=== PATIENT | male | born 1955 | race Caucasian/White ===

== ENCOUNTER 2019-12-11 10:02 | Outpatient (CLI) | payer OTHER, SELFPAY ==
[2019-12-11 10:44] LABS: Basophils Percent Auto 0.4 % (0.2-1.2); Eosinophils Absolute Auto 0.1 K/mm3 (0-0.3); Eosinophils Percent Auto 1.5 % (0-4.4); Hematocrit 47.9 % (42.0-52.0); Hemoglobin 16.4 g/dL (14.0-18.0); Immature Granulocyte Absolute 0.08 K/mm3 (0.00-0.031); Immature Granulocyte Percent A 0.9 % (0-0.5); Lymphocytes Absolute Auto 1.65 K/mm3 (0.9-3.2); Lymphocytes Percent Auto 18.1 % (18.3-44.2); Mean Corpuscular HGB Conc 34.2 g/dl (32-36); Mean Corpuscular Hemoglobin 32.4 pg (26-34); Mean Corpuscular Volume 94.7 fl (80-100); Mean Platelet Volume 8.7 fl (7.4-10.4); Monocytes Absolute Auto 0.7 K/mm3 (0.1-0.6); Monocytes Percent Auto 7.2 % (2.6-8.5); Neutrophils Absolute Auto 6.6 K/mm3 (1.3-6.7); Neutrophils Percent Auto 71.9 % (45.5-73.1); Platelet Count Result 215 k/mm3 (150-375); Red Blood Count 5.06 M/mm3 (4.6-6.20); Red Cell Distribution Width 12.7 % (11.5-14.5); White Blood Count 9.1 K/mm3 (4.5-10.0)
[2019-12-11 10:57] LABS: Alanine Aminotransferase 24 U/L (4-50); Albumin Level 4.6 g/dL (3.5-5.1); Alkaline Phosphatase 60 U/L (38-126); Aspartate Amino Transferase 31 U/L (17-59); Bilirubin,Total 1.2 mg/dL (0.2-1.3); Blood Urea Nitrogen 16 mg/dL (9-20); Calcium 10.1 mg/dL (8.4-10.2); Carbon Dioxide 28 mmol/L (22-30); Chloride 97 mmol/L (98-107); Estimated Glomerular Filt Rate > 60; Glucose 97 mg/dL (75-110); Sodium 134 mmol/L (137-145); Uric Acid 7.4 mg/dL (3.5-8.5)
[2019-12-11 11:01] LABS: Rheumatoid Factor < 8.6 IU/ML (<12)
[2019-12-11 11:28] LABS: Thyroid Stimulating Hormone 0.505 uIU/mL (0.465-4.680)
[2019-12-11 13:20] LABS: Erythrocyte Sedimentation Rate 11 mm/hr (0-20)
[2019-12-16 19:58] LABS: ANA Cascade Screen Negative (Negative)
== END 2019-12-11 10:03 | disposition home or self-care (01) ==
PROVIDERS: PCP Family Medicine; Visit Provider Family Medicine
DX: I10 Essential (primary) hypertension (principal); L40.9 Psoriasis, unspecified; M06.30 Rheumatoid nodule, unspecified site
CPT/HCPCS: 36415; 80053; 84443; 84550; 85025; 85652; 86038; 86430

== ENCOUNTER 2020-09-20 08:42 | Outpatient (CLI) | payer MEDICARE, OTHER, SELFPAY ==
[2020-09-20 09:19] LABS: Alanine Aminotransferase 18 U/L (4-50); Albumin Level 4.5 g/dL (3.5-5.1); Alkaline Phosphatase 58 U/L (38-126); Anion Gap 8 mmol/L (8-16); Aspartate Amino Transferase 36 U/L (17-59); Bilirubin,Total 2.1 mg/dL (0.2-1.3); Blood Urea Nitrogen 19 mg/dL (9-20); Calcium 9.3 mg/dL (8.4-10.2); Carbon Dioxide 23 mmol/L (22-30); Chloride 104 mmol/L (98-107); Cholesterol 215 mg/dL (0-200); Estimated Glomerular Filt Rate > 60; Glucose 98 mg/dL (75-110); HDL Direct 47 mg/dL; Potassium 4.3 mmol/L (3.4-5.0); Sodium 135 mmol/L (137-145); Triglycerides 282 mg/dL (<150)
[2020-09-20 09:28] LABS: LDL Cholesterol Direct 117 mg/dL
[2020-09-22 21:11] LABS: PSA, Total 0.7 ng/mL (<=4.0)
== END 2020-09-20 08:43 | disposition home or self-care (01) ==
PROVIDERS: PCP Family Medicine; Visit Provider Family Medicine
DX: E78.2 Mixed hyperlipidemia (principal); N40.1 Benign prostatic hyperplasia with lower urinary tract symptoms; I10 Essential (primary) hypertension
CPT/HCPCS: 36415; 80053; 80061; 84153; 84154

== ENCOUNTER → 2020-10-06 07:45 | Outpatient (CLI) | payer MEDICARE, OTHER, SELFPAY ==
--- NOTE | ~2020-10-06 | US_ITS ---
EXAMINATION: US right upper quadrant EXAM DATE: 10/06/2020 08:10 INDICATION: R17 - Unspecified jaundice TECHNIQUE: Multiple grayscale and Doppler images of the abdomen right upper quadrant were obtained (b y a technologist who performed the scan) and subsequently reviewed. There is no prior study for jack akbar. FINDINGS: The pancreatic head and body are normal in appearance. The pancreatic tail is not visualized. The l iver has normal echogenicity and contour. There are no focal liver lesions identified. There is no evidence of intrahepatic biliary duct dilation. Portal venous flow was seen in the hepatopedal, nor mal direction and has normal Doppler waveform. No right-sided hydronephrosis. Common bile duct measures 3 mm, which is normal. The gallbladder wall is normal in thickness, with ex pected amount of distention. No sonographic evidence of pericholecystic fluid. There is no cholelit hiases. Technologist performing exam reports patient did not demonstrate sonographic Nguyen's sign. Please note that this sign is less reliable in patients who have received pain medication. IMPRESSION: 1. Unremarkable abdominal ultrasound exam. Reviewed, dictated and finalized at location B. 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
== END ==
PROVIDERS: PCP Family Medicine; Visit Provider Physician Assistant
DX: R17 Unspecified jaundice (principal)
CPT/HCPCS: 76705

== ENCOUNTER 2020-11-15 10:18 | Outpatient (CLI) | payer MEDICARE, OTHER, SELFPAY ==
[2020-11-15 11:03] LABS: Alanine Aminotransferase 20 U/L (4-50); Albumin Level 4.2 g/dL (3.5-5.1); Alkaline Phosphatase 70 U/L (38-126); Anion Gap 6 mmol/L (8-16); Aspartate Amino Transferase 29 U/L (17-59); Bilirubin,Total 1.7 mg/dL (0.2-1.3); Blood Urea Nitrogen 18 mg/dL (9-20); Calcium 9.6 mg/dL (8.4-10.2); Carbon Dioxide 26 mmol/L (22-30); Chloride 106 mmol/L (98-107); Estimated Glomerular Filt Rate > 60; Glucose 101 mg/dL (75-110); Potassium 4.2 mmol/L (3.4-5.0); Sodium 138 mmol/L (137-145)
[2020-11-18 12:15] LABS: GGT 50 U/L (3-70)
== END 2020-11-15 10:19 | disposition home or self-care (01) ==
PROVIDERS: PCP Family Medicine; Visit Provider Physician Assistant
DX: R74.8 Abnormal levels of other serum enzymes (principal); Z87.898 Personal history of other specified conditions; I10 Essential (primary) hypertension
CPT/HCPCS: 36415; 80053; 82977

== ENCOUNTER 2020-12-15 09:26 | Outpatient (CLI) | payer MEDICARE, OTHER, SELFPAY ==
--- NOTE | 2020-12-15 11:00 | NEURO_ITS ---
Impression: # Complains of left hand numbness and weakness. # Severe left Carpal Tunnel Syndrome. 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 # Ulnar to median cross innervation. # Needle/EMG exam abnormal. Nerve Conduction Studies Anti Sensory Summary Table Stim Site NR Peak (ms) P-T Amp (?V) Site1 Site2 Delta-P (ms) Dist (cm) Vitaliy (m/s) Left Median Anti Sensory (2-3nd Digit) NO RESPONSE Wrist NR Wrist 2-3nd Digit 14.0 Wrist NR Wrist 2-3nd Digit 14.0 Left Radial Anti Sensory (Base 1st Digit) Wrist 2.0 20.7 Wrist Base 1st Digit 2.0 0.0 Left Ulnar Anti Sensory (5th Digit) Wrist 3.0 33.3 Wrist 5th Digit 3.0 14.0 47 Motor Summary Table Stim Site NR Onset (ms) O-P Amp (mV) Site1 Site2 Delta-0 (ms) Dist (cm) Vitaliy (m/s) Left Median Motor (Abd Poll Brev) Wrist 13.7 0.5 Elbow Wrist 2.9 33.0 114 Elbow 10.8 1.5 ELB/ADM Wrist 12.8 0.0 Left Ulnar Motor (Abd Dig Minimi) Wrist 3.2 5.7 A Elbow Wrist 6.5 32.0 49 A Elbow 9.7 4.4 B Elbow Wrist 3.8 22.0 58 B Elbow 7.0 4.2 F Wave Studies NR F-Lat (ms) L-R F-Lat (ms) Left Median (Mrkrs) (Abd Poll Brev) 32.05 Left Ulnar (Mrkrs) (Abd Dig Min) 33.85 EMG Side Muscle Nerve Root Ins Act Fibs Amp Dur Recrt Comment Left 1stDorInt Ulnar C8-T1 Nml Nml Decr >12ms Reduced Left Ext Indicis Radial (Post Int) C7-8 Nml Nml Nml Nml Nml Left Ext Digitorum Radial (Post Int) C7-8 Nml Nml Nml Nml Nml Left BrachioRad Radial C5-6 Nml Nml Nml Nml Nml Left PronatorTeres Median C6-7 Nml Nml Nml Nml Nml Left Abd Poll Brev Median C8-T1 Nml Nml Decr >12ms Reduced Left ABD Dig Min Ulnar C8-T1 Nml Nml Decr >12ms Reduced MTDD
== END 2020-12-15 09:27 | disposition home or self-care (01) ==
PROVIDERS: PCP Family Medicine; Visit Provider Family Medicine
DX: G56.02 Carpal tunnel syndrome, left upper limb (principal); G56.22 Lesion of ulnar nerve, left upper limb
CPT/HCPCS: 95886; 95909

== ENCOUNTER 2020-12-17 09:54 | Outpatient (CLI) | payer MEDICARE, OTHER, SELFPAY ==
--- NOTE | ~2020-12-17 | XR_ITS ---
XR hand LT min 3V DATE: 12/17/2020 10:10 INDICATION: Left hand pain. Osteoarthritis. TECHNIQUE: 3 views COMPARISON: None FINDINGS: Mild osteoarthritic change at the first, second and third metacarpophalangeal joints and so me interphalangeal joints. No fracture or dislocation, periosteal reaction or bone destruction. IMPRESSION: Osteoarthritis Reviewed, dictated and finalized at location A. T MASTER IMPRESSION: Osteoarthritis
== END 2020-12-17 09:55 | disposition home or self-care (01) ==
LOC: ANHIMG 09:58
PROVIDERS: PCP Family Medicine; Visit Provider Plastic Surgery
DX: M19.042 Primary osteoarthritis, left hand (principal)
CPT/HCPCS: 73130

== ENCOUNTER → 2021-01-03 00:15 | Outpatient (CLI) | payer MEDICARE, OTHER, SELFPAY ==
[2021-01-03 19:33] LABS: SARS-CoV-2 RNA PCR Negative
== END ==
PROVIDERS: PCP Family Medicine; Visit Provider Plastic Surgery
DX: Z01.812 Encounter for preprocedural laboratory examination (principal); Z20.822 Contact with and (suspected) exposure to COVID-19
CPT/HCPCS: C9803; U0003; U0005

== ENCOUNTER 2021-01-03 08:51 | Outpatient (CLI) | payer MEDICARE, OTHER, SELFPAY ==
--- NOTE | 2021-01-03 11:15 | ECG_ITS ---
Measurements Intervals [place] Rate: 87 P: 19 AL: 165 QRS: 37 QRSD: 96 T: 2 QT: 343 QTc: 414 Interpretive Statements SINUS RHYTHM DELAYED PRECORDIAL R/S TRANSITION BORDERLINE ST-T WAVE ABNORMALITY- INFERIOR LEADS BORDERLINE ECG Electronically Signed On 01-03-2021 9:12:02 MIXER RUNNER by Mario Maravilla D.O.
== END 2021-01-03 08:52 | disposition home or self-care (01) ==
LOC: ANHSURGERY 08:56
PROVIDERS: PCP Family Medicine; Visit Provider Plastic Surgery
DX: I10 Essential (primary) hypertension (principal); Z01.818 Encounter for other preprocedural examination; R94.31 Abnormal electrocardiogram [ECG] [EKG]
CPT/HCPCS: 93005; C9803; U0003; U0005

== ENCOUNTER 2021-01-06 01:42 | Day surgery (SDC) | payer MEDICARE, OTHER, SELFPAY ==
[2020-12-30 14:34] VITALS: BMI 25.1
[2021-01-06 06:06] VITALS: BP 151/86; PULSE 81; RESP 20; TEMP 36.1; O2SAT 97
[2021-01-06] MEDS: LACTATED RINGERS 1,000 ML 30 ML IV CONT (06:18)
--- NOTE | 2021-01-06 06:45 | WPDHPUPDATE1 ---
History and Physical Update Update Date/Time: 01/06/21 06:45 History and Physical has been reviewed, including an updated exam of the patient. There are NO changes in the patient's condition. Risks, benefits, and alternatives have been discussed and questions answered. Patient agrees to proceed with procedure.
--- NOTE | 2021-01-06 07:01 | WPDANESEPPF ---
Anes - Initial Pre Proc Eval Procedure: Operation Date: 01/06/21 07:30 Proposed Procedures p Left Open Carpal Tunnel Release, Left Ulnar Neuroplasty - Tristan Ortega MD Date/Time: 01/06/21 07:01 Surgeon: Tristan Ortega MD Pre Op Diagnosis: Left Carpal Tunnel Syndrome And Cubital Syndrome Patient Data Age: 65 Gender: M Height: 6 ft Weight: 83.9 kg Last Vital Signs Temp 97.0 F L 01/06/21 06:06 Pulse 81 01/06/21 06:06 Resp 20 01/06/21 06:06 BP 151/86 H 01/06/21 06:06 Pulse Ox 97 01/06/21 06:06 Allergies Allergy/AdvReac Type Severity Reaction Status Date / Time No Known Allergies Allergy Unverified 01/06/21 06:24 Home Medications Medication Instructions Recorded Confirmed Type celecoxib 200 mg capsule 200 mg PO DAILY #30 cap 09/13/20 01/06/21 Rx lisinopril 20 1 tablet PO DAILY #90 tablet 09/13/20 01/06/21 Rx mg-hydrochlorothiazide 12.5 mg tablet tadalafil 5 mg tablet 5 mg PO DAILY #30 tablet 10/18/20 01/06/21 Rx clobetasol 0.05 applic TOPICAL DAILY 12/30/20 01/06/21 History multivitamin,[id number] 1 tablet PO DAILY 12/30/20 01/06/21 History [Complete Multivitamin] Patient hx anesthesia problems: none Family hx anesthesia problems: none PMFSH Past Medical History Medical History (Updated 11/18/20 @ 09:17 by Cheli Andres MD) DVT of leg (deep venous thrombosis) Psoriasis Rheumatoid nodules Surgical History Surgical History H/O right knee surgery Social History Social History (Updated 11/18/20 @ 08:48 by Zo Rivera) Social History: Smoking packs per day: 1.5 Smoking cigarettes per day: 30.0 Years smoked: 25 Smoking pack-years: 37.50 Smoking status: Former smoker Tobacco type: cigarettes Second hand tobacco smoke exposure: No Smoking end date: 11/12/99 Alcohol intake: current Drinks per week: 7 Substance use: never Substance use type: does not use Living arrangements: with family Gender identity (if verbalized by the patient): Male Spiritual care concerns: No Anes - Eval Final PreProcedure Day of Procedure 01/06/21 07:01 Patient weight: overweight Heart: regular rate and rhythm Lungs: clear to auscultation Airway: Mallampati scale class II Neurological: alert and oriented Last oral intake: >/= 8 hours ASA classification: II Emergent: no Anesthetic plan: proceed Anesthesia type and monitoring: general GIVS and standard monitoring Informed Consent: The patient's anesthetic plan and its attendant risks and benefits were discussed with the patient/family/POA. Questions were solicited and answers provided to the satisfaction of the patient/family/POA.
--- NOTE | 2021-01-06 07:07 | SUR.PREOP ---
pt ambulated to bathroom w/o difficulty
[2021-01-06] MEDS: LIDO 1%/EPINEPHRINE 1:100,000 50 ML VIAL 8 ML INFILTRATE (07:59)
--- NOTE | 2021-01-06 07:59 | PM.OP ---
Procedure Note - Brief Procedure Note - Brief Date of procedure: 01/06/21 Pre-op diagnosis: Left Carpal Tunnel Syndrome And Cubital Syndrome Post-op diagnosis: same Procedure performed: L OCTR and L ulnar neuroplasdty at the elbow. Anesthesia: MAC Surgeon: Tristan Ortega MD Estimated blood loss (mL): 1 Tourniquet time (min): 22 Drains: No Packing: No Pathology: none sent Complications: No immediate complications Condition: stable Disposition: same day
--- NOTE | 2021-01-06 08:04 | PM.PROC ---
Procedure Note - Detailed Date of procedure: 01/06/21 Pre-op diagnosis: Left Carpal Tunnel Syndrome And Cubital Syndrome Post-op diagnosis: same Procedure performed: Left open carpal tunnel release and left ulnar neuroplasty at the elbow Description of procedure: The 2 sites on the left upper extremity were marked in the holding area. The patient taken to the operating room and placed supine on the operating table. Time-out was held and confirmed. He was given IV sedation as the extremity was prepped and draped in usual fashion. The 2 sites were marked with a pen and infiltrated with 1% lidocaine with epinephrine. The tourniquet was inflated to 250 mmHg. The incision in the palm was made 1st. This was dissected through the subcutaneous tissue to the palmar aponeurosis. The aponeurosis and the carpal ligament were incised with a 15. Blade opening the canal. Under 3 point retraction the ligament was divided distally and proximally to completely release it. No unusual anatomy was noted. The skin was closed with interrupted 4-0 nylon suture. Attention was turned to the elbow which was flexed and supported on folded towels. The incision was made as marked and dissection was carried through the subcutaneous tissue to the medial epicondyle. The nerve was identified a couple of cm proximal to the out and followed throughout its course into the proximal forearm. The nerve did not sublux. It appeared that compression probably lay at the Alejandra ligament and the proximal muscle fascia. Bleeding points were electrocoagulated the wound was closed with intradermal 3-0 Monocryl the cross hatching mathews. Skin was closed with a running intradermal 3-0 Monocryl. Soft bandages were applied at both sites and the patient's discharge instructions wound care and follow-up. He has a prescription for hydrocodone 10. Surgeon: Tristan Ortega MD
[2021-01-06 08:06] VITALS: BP 126/80; PULSE 85; RESP 14; O2SAT 95
[2021-01-06 08:36] VITALS: BP 139/83; PULSE 84; RESP 14
[2021-01-06 08:55] VITALS: BP 130/76; PULSE 80; RESP 14
== END 2021-01-06 09:05 | disposition home or self-care (01) ==
PROVIDERS: PCP Family Medicine; Visit Provider Plastic Surgery
PROC: (CPT 64721; principal; 2021-01-06 07:30)
DX: G56.02 Carpal tunnel syndrome, left upper limb (principal); G56.22 Lesion of ulnar nerve, left upper limb; Z86.718 Personal history of other venous thrombosis and embolism; L40.9 Psoriasis, unspecified; M06.30 Rheumatoid nodule, unspecified site; Z87.891 Personal history of nicotine dependence
CPT/HCPCS: 64721; 64718; A9270; J2704; J3010; J7120

== ENCOUNTER 2021-07-09 09:51 | Outpatient (CLI) | payer MEDICARE, OTHER, SELFPAY ==
--- NOTE | ~2021-07-09 | XR_ITS ---
XR hand LT min 3V DATE: 07/09/2021 10:17 INDICATION: Osteoarthritis TECHNIQUE: 3 views COMPARISON: December 17, 2020 left hand FINDINGS: There is diffuse osteopenia. There is osteoarthritic change at the first through third metacarpophalangeal joints and multiple int erphalangeal joints. There is prominent soft tissue swelling of the proximal interphalangeal joint ar ea of the third digit. No fracture or dislocation, periosteal reaction or bone destruction, chondrocalcinosis or erosive adam nge. IMPRESSION: Polyarticular osteoarthritis Soft tissue swelling of the proximal interphalangeal joint of the third digit Reviewed, dictated and finalized at location A.
--- NOTE | ~2021-07-09 | XR_ITS ---
XR cervical spine 4-5V DATE: 07/09/2021 10:16 INDICATION: Neck pain, hand numbness TECHNIQUE: AP, open-mouth, lateral, swimmer views COMPARISON: None FINDINGS: There is straightening of the cervical spine. There is levoscoliosis of the cervical and upper thoracic spine. C1 and C2 are normally aligned and the odontoid process is intact. There is moderately prominent degenerative disc disease at C5-6 and severe degenerative disc disease at C6-7. IMPRESSION: Straightening; levoscoliosis of cervical and upper thoracic spine Moderate degenerative disc disease at C5-6, severe degenerative disc disease at C6-7 Reviewed, dictated and finalized at location A.
== END 2021-07-09 09:52 | disposition home or self-care (01) ==
LOC: ANHIMG 09:54
PROVIDERS: PCP Family Medicine; Visit Provider Plastic Surgery
DX: M46.92 Unspecified inflammatory spondylopathy, cervical region (principal); M19.042 Primary osteoarthritis, left hand; M50.322 Other cervical disc degeneration at C5-C6 level; M50.323 Other cervical disc degeneration at C6-C7 level
CPT/HCPCS: 72050; 73130

== ENCOUNTER 2021-09-19 07:56 | Outpatient (CLI) | payer MEDICARE, OTHER, SELFPAY ==
[2021-09-19 09:04] LABS: Basophils Absolute Auto 0.1 K/mm3 (0.0-0.1); Basophils Percent Auto 0.8 % (0.2-1.2); Eosinophils Absolute Auto 0.2 K/mm3 (0-0.3); Eosinophils Percent Auto 3.4 % (0-4.4); Hematocrit 47.2 % (42.0-52.0); Hemoglobin 16.4 g/dL (14.0-18.0); Immature Granulocyte Absolute 0.03 K/mm3 (0.00-0.031); Immature Granulocyte Percent A 0.5 % (0-0.5); Lymphocytes Absolute Auto 1.98 K/mm3 (0.9-3.2); Lymphocytes Percent Auto 30.7 % (18.3-44.2); Mean Corpuscular HGB Conc 34.7 g/dl (32-36); Mean Corpuscular Hemoglobin 33.1 pg (26-34); Mean Corpuscular Volume 95.4 fl (80-100); Mean Platelet Volume 8.3 fl (7.4-10.4); Monocytes Absolute Auto 0.6 K/mm3 (0.1-0.6); Monocytes Percent Auto 8.5 % (2.6-8.5); Neutrophils Absolute Auto 3.6 K/mm3 (1.3-6.7); Neutrophils Percent Auto 56.1 % (45.5-73.1); Platelet Count Result 237 k/mm3 (150-375); Red Blood Count 4.95 M/mm3 (4.6-6.20); Red Cell Distribution Width 12.1 % (11.5-14.5); White Blood Count 6.4 K/mm3 (4.5-10.0)
[2021-09-19 09:24] LABS: Alanine Aminotransferase 36 U/L (4-50); Albumin Level 4.7 g/dL (3.5-5.1); Alkaline Phosphatase 74 U/L (38-126); Anion Gap 11 mmol/L (8-16); Aspartate Amino Transferase 43 U/L (17-59); Bilirubin,Total 1.3 mg/dL (0.2-1.3); Blood Urea Nitrogen 14 mg/dL (9-20); Calcium 9.7 mg/dL (8.4-10.2); Carbon Dioxide 23 mmol/L (22-30); Chloride 100 mmol/L (98-107); Cholesterol 205 mg/dL (0-200); Estimated Glomerular Filt Rate > 60; Glucose 90 mg/dL (65-110); HDL Direct 62 mg/dL; Potassium 4.5 mmol/L (3.4-5.0); Sodium 134 mmol/L (137-145); Triglycerides 115 mg/dL (<150)
[2021-09-19 09:35] LABS: LDL Cholesterol Direct 116 mg/dL
== END 2021-09-19 07:57 | disposition home or self-care (01) ==
PROVIDERS: PCP Family Medicine; Visit Provider Physician Assistant
DX: R03.0 Elevated blood-pressure reading, without diagnosis of hypertension (principal); Z13.220 Encounter for screening for lipoid disorders; E03.9 Hypothyroidism, unspecified
CPT/HCPCS: 36415; 80053; 80061; 85025

== ENCOUNTER 2021-10-07 07:33 | Outpatient (CLI) | payer MEDICARE, OTHER, SELFPAY ==
[2021-10-07 07:52] LABS: Basophils Percent Auto 0.2 % (0.2-1.2); Eosinophils Absolute Auto 0.1 K/mm3 (0-0.3); Eosinophils Percent Auto 0.9 % (0-4.4); Hematocrit 44.5 % (42.0-52.0); Hemoglobin 15.5 g/dL (14.0-18.0); Immature Granulocyte Absolute 0.07 K/mm3 (0.00-0.031); Immature Granulocyte Percent A 0.8 % (0-0.5); Lymphocytes Absolute Auto 1.89 K/mm3 (0.9-3.2); Mean Corpuscular HGB Conc 34.8 g/dl (32-36); Mean Corpuscular Volume 94.9 fl (80-100); Mean Platelet Volume 8.5 fl (7.4-10.4); Monocytes Percent Auto 11.6 % (2.6-8.5); Neutrophils Absolute Auto 5.5 K/mm3 (1.3-6.7); Neutrophils Percent Auto 64.5 % (45.5-73.1); Platelet Count Result 249 k/mm3 (150-375); Red Blood Count 4.69 M/mm3 (4.6-6.20); White Blood Count 8.6 K/mm3 (4.5-10.0)
[2021-10-07 08:02] LABS: Alanine Aminotransferase 27 U/L (4-50); Albumin Level 4.5 g/dL (3.5-5.1); Alkaline Phosphatase 67 U/L (38-126); Anion Gap 6 mmol/L (8-16); Aspartate Amino Transferase 29 U/L (17-59); Bilirubin,Total 3.8 mg/dL (0.2-1.3); Blood Urea Nitrogen 10 mg/dL (9-20); Calcium 9.9 mg/dL (8.4-10.2); Carbon Dioxide 29 mmol/L (22-30); Chloride 100 mmol/L (98-107); Cholesterol 154 mg/dL (0-200); Estimated Glomerular Filt Rate > 60; Glucose 121 mg/dL (65-110); HDL Direct 63 mg/dL; Potassium 3.9 mmol/L (3.4-5.0); Sodium 135 mmol/L (137-145); Triglycerides 121 mg/dL (<150)
[2021-10-07 08:13] LABS: LDL Cholesterol Direct 62 mg/dL
== END 2021-10-07 07:34 | disposition home or self-care (01) ==
PROVIDERS: PCP Family Medicine; Visit Provider Family Medicine
DX: R03.0 Elevated blood-pressure reading, without diagnosis of hypertension (principal); E03.9 Hypothyroidism, unspecified; Z13.220 Encounter for screening for lipoid disorders
CPT/HCPCS: 36415; 80053; 80061; 85025

== ENCOUNTER 2021-11-08 07:24 | Outpatient (CLI) | payer MEDICARE, OTHER, SELFPAY ==
--- NOTE | ~2021-11-08 | US_ITS ---
EXAMINATION: US abdomen limited EXAM DATE: 11/08/2021 08:04 INDICATION: R17 - Unspecified jaundice. TECHNIQUE: Multiple grayscale and Doppler images of the abdomen right upper quadrant were obtained (b y a technologist who performed the scan) and subsequently reviewed. Comparison is made to prior exami nation from 10/06/2020. FINDINGS: The pancreatic head and body are normal in appearance. The pancreatic tail is not visualized. There is echogenic liver parenchyma, hepatic steatosis. There are no focal liver lesions identified. Th ere is no evidence of intrahepatic biliary duct dilation. Portal venous flow was seen in the hepatop edal, normal direction and has normal Doppler waveform. No right-sided hydronephrosis. Common bile duct measures 2 mm, which is normal. The gallbladder wall is normal in thickness, with ex pected amount of distention. No sonographic evidence of pericholecystic fluid. There is no cholelit hiases. Technologist performing exam reports patient did not demonstrate sonographic Nguyen's sign. Please note that this sign is less reliable in patients who have received pain medication. IMPRESSION: Hepatic steatosis. No evidence of biliary dilation. Reviewed, dictated and finalized at location A. 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
== END 2021-11-08 07:25 | disposition home or self-care (01) ==
LOC: ANHIMG 07:24
PROVIDERS: PCP Family Medicine; Visit Provider Family Medicine
DX: K76.0 Fatty (change of) liver, not elsewhere classified (principal)
CPT/HCPCS: 76705

== ENCOUNTER 2021-12-20 09:38 | Outpatient (CLI) | payer MEDICARE, OTHER, SELFPAY ==
[2021-12-20 11:16] LABS: Alanine Aminotransferase 21 U/L (4-50); Aspartate Amino Transferase 31 U/L (17-59)
== END 2021-12-20 09:39 | disposition home or self-care (01) ==
LOC: ANHLAB 09:41
PROVIDERS: PCP Family Medicine; Visit Provider Family Medicine
DX: E78.2 Mixed hyperlipidemia (principal)
CPT/HCPCS: 36415; 84450; 84460

== ENCOUNTER 2022-03-06 09:06 | Outpatient (CLI) | payer MEDICARE, OTHER, SELFPAY ==
--- NOTE | ~2022-03-06 | XR_ITS ---
EXAMINATION: XR knee LT 3V DATE: 03/06/2022 09:31 INDICATION: Chronic left knee mass. TECHNIQUE: 3 views of left knee were obtained. COMPARISON: None. FINDINGS: Bone alignment is normal. No fracture. There is mild osteoarthritis of medial compartment. No knee joint effusion. There is prepatellar and superficial infrapatellar soft tissue swelling. IMPRESSION: 1. Mild left knee osteoarthritis. 2. Anterior knee soft tissue swelling. Reviewed, dictated and finalized at location A.
== END 2022-03-06 09:07 | disposition home or self-care (01) ==
LOC: ANHIMG 09:08
PROVIDERS: PCP Family Medicine; Visit Provider Family Medicine
DX: M17.12 Unilateral primary osteoarthritis, left knee (principal)
CPT/HCPCS: 73562

== ENCOUNTER 2022-04-17 13:28 | Outpatient (CLI) | payer MEDICARE, OTHER, SELFPAY ==
--- NOTE | ~2022-04-17 | MR_ITS ---
EXAMINATION: MR knee LT wo con DATE: 04/17/2022 14:07 INDICATION: Chronic left knee mass anterior to the tibial tuberosity. Left knee pain. TECHNIQUE: Magnetic resonance imaging (MRI) of the left knee was performed without intravenous contra st. Sequences included axial PD-weighted FS FSE, coronal PD-weighted FSE and PD-weighted FS FSE, sagi ttal PD-weighted FSE, and sagittal T2-weighted FS FSE. COMPARISON: Left knee radiographs 03/06/2022 FINDINGS: Medial compartment: There is a complex tear involving body and posterior horn of medial meniscus. There is partial-thickn ess cartilage loss of tibial condyle and femoral condyle, worst at the central articular surface. Lateral compartment: There is an upper surface horizontal tear of body of lateral meniscus. There is cartilage surface irr egularity of femoral condyle and tibial condyle. Patellofemoral compartment: There is cartilage surface irregularity of patellar median ridge with mild subchondral edema-like mar row signal intensity. Trochlear cartilage is normal. Ligaments and tendons: The anterior and posterior cruciate ligaments are normal. Medial collateral ligament and fibular daniella ateral ligament are normal. Iliotibial band is thickened with increased signal intensity and surround ing edema. There is severe patellar tendinopathy. Fluid: There is a small knee joint effusion. There is a small Johns's cyst. There is moderate prepatellar bu rsitis. Osseous/other: There are 2 heterogeneous subcutaneous masses superficial to patellar tendon measuring 1.1 cm and 3.0 cm, respectively. There is moderate superficial infrapatellar bursitis. IMPRESSION: 1. Two subcutaneous masses superficial to the patellar tendon, most likely benign masses such as senior it project manager remy hematomas, connective tissue disease, or gout. 2. Severe patellar tendinopathy. Iliotibial band tendinopathy. 3. Mild tricompartmental chondrosis. 4. Tears of medial and lateral menisci. 5. Small knee joint effusion. 6. Small Johns's cyst. Reviewed, dictated and finalized at location A. IMPRESSION: 1. Two subcutaneous masses superficial to the patellar tendon, most likely heather gn masses such as chronic hematomas, connective tissue disease, or gout. 2. Severe patellar tendinopathy. Iliotibial band tendinopathy. 3. Mild tricompartmental chondrosis. 4. Tears of medial and lateral menisci. 5. Small knee joint effusion. 6. Small Johns's cyst.
== END 2022-04-17 13:29 | disposition home or self-care (01) ==
PROVIDERS: PCP Family Medicine; Visit Provider Orthopaedic Surgery
DX: M71.22 Synovial cyst of popliteal space [Baker], left knee (principal); M25.462 Effusion, left knee; M17.12 Unilateral primary osteoarthritis, left knee
CPT/HCPCS: 73721

== ENCOUNTER 2022-05-18 08:20 | Outpatient (CLI) | payer MEDICARE, OTHER, SELFPAY ==
--- NOTE | 2022-05-18 11:30 | NEURO_ITS ---
Impression: # Complains of numbness and pain in hands. # Bilateral Carpal Tunnel Syndrome, left more than right. # Needle/EMG exam neurogenic. # Clinical correlation recommended. Nerve Conduction Studies Anti Sensory Summary Table Stim Site NR Peak (ms) P-T Amp (?V) Site1 Site2 Delta-P (ms) Dist (cm) Vitaliy (m/s) Left Median Anti Sensory (2-3nd Digit) Wrist 6.4 7.0 Wrist 2-3nd Digit 6.4 14.0 22 Wrist 6.0 3.5 Wrist 2-3nd Digit 6.4 14.0 22 Right Median Anti Sensory (2-3nd Digit) Wrist 6.2 18.3 Wrist 2-3nd Digit 6.2 14.0 23 Wrist 6.4 24.5 Wrist 2-3nd Digit 6.2 14.0 23 Left Radial Anti Sensory (Base 1st Digit) Wrist 2.3 22.8 Wrist Base 1st Digit 2.3 0.0 Right Radial Anti Sensory (Base 1st Digit) Wrist 2.5 15.0 Wrist Base 1st Digit 2.5 0.0 Left Ulnar Anti Sensory (5th Digit) Wrist 3.2 27.7 Wrist 5th Digit 3.2 14.0 44 Right Ulnar Anti Sensory (5th Digit) Wrist 3.0 10.5 Wrist 5th Digit 3.0 14.0 47 Motor Summary Table Stim Site NR Onset (ms) O-P Amp (mV) Site1 Site2 Delta-0 (ms) Dist (cm) Vitaliy (m/s) Left Median Motor (Abd Poll Brev) Wrist 7.0 0.4 Elbow Wrist 4.6 26.0 57 Elbow 11.6 0.5 Right Median Motor (Abd Poll Brev) Wrist 5.4 2.0 Elbow Wrist 6.3 31.0 49 Elbow 11.7 1.7 Left Ulnar Motor (Abd Dig Minimi) Wrist 3.3 5.7 A Elbow Wrist 5.9 31.0 53 A Elbow 9.2 4.5 Right Ulnar Motor (Abd Dig Minimi) Wrist 3.4 4.5 A Elbow Wrist 6.1 31.0 51 A Elbow 9.5 3.7 F Wave Studies NR F-Lat (ms) L-R F-Lat (ms) Left Median (Mrkrs) (Abd Poll Brev) 33.88 0.70 Right Median (Mrkrs) (Abd Poll Brev) 34.58 0.70 Left Ulnar (Mrkrs) (Abd Dig Min) 33.75 0.84 Right Ulnar (Mrkrs) (Abd Dig Min) 34.59 0.84 EMG Side Muscle Nerve Root Ins Act Fibs Amp Dur Recrt Comment Right 1stDorInt Ulnar C8-T1 Nml Nml Nml Nml Nml Right Ext Indicis Radial (Post Int) C7-8 Nml Nml Nml Nml Nml Right Ext Digitorum Radial (Post Int) C7-8 Nml Nml Nml Nml Nml Right BrachioRad Radial C5-6 Nml Nml Nml Nml Nml Right PronatorTeres Median C6-7 Nml Nml Nml Nml Nml Right Abd Poll Brev Median C8-T1 Nml Nml Decr >12ms Reduced Left 1stDorInt Ulnar C8-T1 Nml Nml Nml Nml Nml Left Ext Indicis Radial (Post Int) C7-8 Nml Nml Nml Nml Nml Left Ext Digitorum Radial (Post Int) C7-8 Nml Nml Nml Nml Nml Left BrachioRad Radial C5-6 Nml Nml Nml Nml Nml Left PronatorTeres Median C6-7 Nml Nml Nml Nml Nml Left Abd Poll Brev Median C8-T1 Nml Nml Decr >12ms Reduced Right ABD Dig Min Ulnar C8-T1 Nml Nml Nml Nml Reduced Right Add Pollicis Ulnar C8-T1 Nml Nml Nml Nml Nml Left ABD Dig Min Ulnar C8-T1 Nml Nml Nml Nml Reduced Left Add Pollicis Ulnar C8-T1 Nml Nml Nml Nml Nml MTDD
== END 2022-05-18 08:21 | disposition home or self-care (01) ==
LOC: ANHNEURO 08:21
PROVIDERS: PCP Family Medicine; Visit Provider Family Medicine
DX: R20.0 Anesthesia of skin (principal); G56.03 Carpal tunnel syndrome, bilateral upper limbs
CPT/HCPCS: 95886; 95911

== ENCOUNTER 2022-06-28 10:37 | Outpatient (CLI) | payer MEDICARE, OTHER, SELFPAY ==
[2022-06-28 11:27] LABS: Alanine Aminotransferase 25 U/L (6-50); Albumin Level 4.3 g/dL (3.5-5.1); Alkaline Phosphatase 62 U/L (38-126); Anion Gap 8 mmol/L (8-16); Aspartate Amino Transferase 30 U/L (17-59); Bilirubin,Total 0.6 mg/dL (0.2-1.3); Blood Urea Nitrogen 13 mg/dL (9-20); Carbon Dioxide 27 mmol/L (22-30); Chloride 104 mmol/L (98-107); Cholesterol 120 mg/dL (0-200); Estimated Glomerular Filt Rate > 60; Glucose 117 mg/dL (65-110); HDL Direct 32 mg/dL; Potassium 4.7 mmol/L (3.4-5.0); Sodium 139 mmol/L (137-145); Triglycerides 158 mg/dL (<150); Uric Acid 4.6 mg/dL (3.5-8.5)
[2022-06-28 11:34] LABS: Hemoglobin A1C 5.5 % (<5.7)
[2022-06-28 11:38] LABS: LDL Cholesterol Direct 44 mg/dL
[2022-06-28 12:56] LABS: Erythrocyte Sedimentation Rate 16 mm/hr (0-20)
== END 2022-06-28 10:38 | disposition home or self-care (01) ==
LOC: ANHLAB 10:38
PROVIDERS: PCP Family Medicine; Visit Provider Family Medicine
DX: E78.2 Mixed hyperlipidemia (principal); E79.0 Hyperuricemia without signs of inflammatory arthritis and tophaceous disease; I10 Essential (primary) hypertension; N40.1 Benign prostatic hyperplasia with lower urinary tract symptoms; M13.80 Other specified arthritis, unspecified site; E11.9 Type 2 diabetes mellitus without complications
CPT/HCPCS: 36415; 80053; 80061; 83036; 84550; 85652

== ENCOUNTER 2023-05-24 09:03 | Outpatient (CLI) | payer MEDICARE, OTHER, SELFPAY ==
[2023-05-24 09:33] LABS: Basophils Percent Auto 0.6 % (0.2-1.2); Eosinophils Percent Auto 4.2 % (0-4.4); Hematocrit 43.3 % (42.0-52.0); Hemoglobin 14.8 g/dL (14.0-18.0); Immature Granulocyte Absolute 0.05 K/mm3 (0.00-0.031); Immature Granulocyte Percent A 0.8 % (0-0.5); Lymphocytes Percent Auto 36.4 % (18.3-44.2); Mean Corpuscular HGB Conc 34.2 g/dl (32-36); Mean Corpuscular Volume 96.4 fl (80-100); Mean Platelet Volume 9.1 fl (7.4-10.4); Platelet Count Result 239 k/mm3 (150-375); Red Blood Count 4.49 M/mm3 (4.6-6.20); Red Cell Distribution Width 13.7 % (11.5-14.5); White Blood Count 6.4 K/mm3 (4.5-10.0)
[2023-05-24 09:34] LABS: Eosinophils Absolute Auto 0.3 K/mm3 (0-0.3); Lymphocytes Absolute Auto 2.33 K/mm3 (0.9-3.2); Monocytes Absolute Auto 0.5 K/mm3 (0.1-0.6); Neutrophils Absolute Auto 3.3 K/mm3 (1.3-6.7)
[2023-05-24 09:44] LABS: Alanine Aminotransferase 19 U/L (6-50); Albumin Level 4.5 g/dL (3.5-5.1); Alkaline Phosphatase 77 U/L (38-126); Anion Gap 8 mmol/L (8-16); Aspartate Amino Transferase 26 U/L (17-59); Bilirubin,Total 1.4 mg/dL (0.2-1.3); Blood Urea Nitrogen 18 mg/dL (9-20); Calcium 9.1 mg/dL (8.4-10.2); Carbon Dioxide 25 mmol/L (22-30); Chloride 106 mmol/L (98-107); Cholesterol 185 mg/dL (0-200); Estimated Glomerular Filt Rate > 60; Glucose 88 mg/dL (65-110); HDL Direct 48 mg/dL; Potassium 4.1 mmol/L (3.4-5.0); Sodium 139 mmol/L (137-145); Triglycerides 103 mg/dL (<150); Uric Acid 4.8 mg/dL (3.5-8.5)
[2023-05-24 09:55] LABS: LDL Cholesterol Direct 98 mg/dL
[2023-05-24 10:14] LABS: Prostate Specific Antigen 0.4 ng/mL (< OR = 4.0)
== END 2023-05-24 09:04 | disposition home or self-care (01) ==
PROVIDERS: PCP Family Medicine; Visit Provider Nurse Practitioner Gerontology
DX: E78.5 Hyperlipidemia, unspecified (principal); I10 Essential (primary) hypertension; M1A.9XX1 Chronic gout, unspecified, with tophus (tophi); Z72.89 Other problems related to lifestyle; L40.9 Psoriasis, unspecified; Z12.5 Encounter for screening for malignant neoplasm of prostate
CPT/HCPCS: 36415; 80053; 80061; 84153; 84550; 85025; G0103

== ENCOUNTER 2024-03-03 07:19 | Outpatient (CLI) | payer MEDICARE, OTHER, SELFPAY ==
[2024-03-03 07:51] LABS: Basophils Absolute Auto 0.1 K/mm3 (0.0-0.1); Eosinophils Absolute Auto 0.4 K/mm3 (0-0.3); Eosinophils Percent Auto 6.7 % (0-4.4); Hematocrit 44.5 % (42.0-52.0); Hemoglobin 15.2 g/dL (14.0-18.0); Immature Granulocyte Absolute 0.05 K/mm3 (0.00-0.031); Immature Granulocyte Percent A 0.8 % (0-0.5); Lymphocytes Absolute Auto 2.27 K/mm3 (0.9-3.2); Lymphocytes Percent Auto 36.4 % (18.3-44.2); Mean Corpuscular HGB Conc 34.2 g/dl (32-36); Mean Corpuscular Volume 99.6 fl (80-100); Mean Platelet Volume 8.7 fl (7.4-10.4); Monocytes Absolute Auto 0.4 K/mm3 (0.1-0.6); Monocytes Percent Auto 7.1 % (2.6-8.5); Platelet Count Result 227 k/mm3 (150-375); Red Blood Count 4.47 M/mm3 (4.6-6.20); Red Cell Distribution Width 13.4 % (11.5-14.5); White Blood Count 6.2 K/mm3 (4.5-10.0)
[2024-03-03 08:17] LABS: Alanine Aminotransferase 18 U/L (6-50); Albumin Level 4.6 g/dL (3.5-5.1); Alkaline Phosphatase 73 U/L (38-126); Anion Gap 4 mmol/L (4-12); Aspartate Amino Transferase 28 U/L (17-59); Bilirubin,Total 1.5 mg/dL (0.2-1.3); Blood Urea Nitrogen 17 mg/dL (9-20); Calcium 9.6 mg/dL (8.4-10.2); Carbon Dioxide 26 mmol/L (22-30); Chloride 106 mmol/L (98-107); Cholesterol 178 mg/dL (0-200); Estimated Glomerular Filt Rate > 60; Glucose 92 mg/dL (65-110); HDL Direct 57 mg/dL; Potassium 4.3 mmol/L (3.4-5.0); Sodium 136 mmol/L (137-145); Triglycerides 119 mg/dL (<150); Uric Acid 4.4 mg/dL (3.5-8.5)
[2024-03-03 08:28] LABS: LDL Cholesterol Direct 108 mg/dL
[2024-03-03 10:27] LABS: Hemoglobin A1C 4.8 % (<5.7)
[2024-03-05 12:39] LABS: PSA, Free 0.1 ng/mL; PSA, Total 0.4 ng/mL (< OR = 4.0); Percent Free Prostate Spec Ag 25 % (calc) (>25)
== END 2024-03-03 07:20 | disposition home or self-care (01) ==
PROVIDERS: PCP Family Medicine; Referring Provider Physician Assistant; Visit Provider Family Medicine
DX: N40.1 Benign prostatic hyperplasia with lower urinary tract symptoms (principal); R97.20 Elevated prostate specific antigen [PSA]; I10 Essential (primary) hypertension; R73.09 Other abnormal glucose; M1A.0621 Idiopathic chronic gout, left knee, with tophus (tophi); E78.2 Mixed hyperlipidemia
CPT/HCPCS: 36415; 80053; 80061; 83036; 84153; 84154; 84550; 85025

== ENCOUNTER 2024-05-23 13:08 | Outpatient (CLI) | payer MEDICARE, OTHER, SELFPAY ==
--- NOTE | 2024-05-23 13:21 | ECHO_ITS ---
Patient Info Name: Edmundo Pereira Age: 68 years : 1955 Gender: Male Ht: 72 in Wt: 175 lbs BSA: 2.01 m2 HR: 86 bpm BP: 162 / 92 mmHg Technical Quality: Good Exam Date: 05/23/2024 1:34 PM Exam Location: [facility] Patient Status: Outpatient Admit Date: 05/23/2024 Staff Ordering Physician: Cheli Andres MD Electronic System Engineer: Дмитрий Ledesma RDCS Attending Provider: Cheli Andres MD Referring Physician: Mckenna BRICE; Exam Type: CA echo doppler color flow Study Info Indications R01.1 - Cardiac murmur, unspecified Complete two-dimensional, color flow and Doppler transthoracic echocardiogram is performed. Summary 1. Complete two-dimensional, color flow and Doppler transthoracic echocardiogram is performed. 2. Left ventricular chamber dimension is normal. 3. Left ventricular systolic function is normal, estimated at 55-60%. 4. The left ventricular diastolic function is normal. 5. E/e' 7 is not elevated. 6. There is trace mitral valve regurgitation. 7. No pulmonary hypertension, estimated pulmonary arterial systolic pressure is 15 mmHg. Left Ventricle E/e' 7 is not elevated. Left ventricular chamber dimension is normal. Left ventricular systolic function is normal, estimated at 55-60%. The left ventricular diastolic function is normal. Right Ventricle Right ventricular systolic function is normal and with normal TAPSE 2.7 cm. Right ventricular chamber dimension is normal. Left Atria Left atrial chamber dimension is normal. Right Atria Right atrial chamber dimension is normal. Aortic Valve The aortic valve is trileaflet. There is no aortic valve stenosis. There is no aortic valve regurgitation. Pulmonic Valve There is no pulmonic regurgitation. Mitral Valve There is no mitral valve stenosis. There is trace mitral valve regurgitation. Tricuspid Valve There is no tricuspid valve regurgitation. No pulmonary hypertension, estimated pulmonary arterial systolic pressure is 15 mmHg. Pericardium/Pleural There is no pericardial effusion. Inferior Vena Cava Normal inferior vena cava with >50% collapse upon inspiration consistent with normal right atrial pressure, 5 mmHg. Aorta The aortic root size at the sinus of Valsalva is normal. Left Ventricular Outflow Tract Name Value Normal LVOT 2D LVOT Diameter 2.1 cm LVOT Doppler LVOT Peak Gradient 7 mmHg LVOT Mean Gradient 3 mmHg LVOT VTI 27 cm LVOT VTI/AV VTI Ratio 1.0 LVOT Stroke Volume 96 ml LVOT CO 7.8 l/min LVOT CI 3.9 l/min/m2 Pulmonic Valve Name Value Normal PV Doppler PV Peak Gradient 6 mmHg Mitral Valve Name Value Normal
== END 2024-05-23 13:09 | disposition home or self-care (01) ==
LOC: ANHCARD 13:10
PROVIDERS: PCP Family Medicine; Visit Provider Family Medicine
DX: R01.1 Cardiac murmur, unspecified (principal)
CPT/HCPCS: 93306

== ENCOUNTER 2024-09-01 10:52 | Outpatient (CLI) | payer MEDICARE, OTHER, SELFPAY ==
--- NOTE | ~2024-09-01 | XR_ITS ---
3 VIEWS LUMBAR SPINE Ordering provider: Marjorie Nicolas PA-C History: . FALL SUNDAY RIGHT SIDE MID TO LOW BACK PAIN . Comparison: None. FINDINGS: VERTEBRAL BODIES:Compression fracture of L1 most likely acute loss of volume of about 30%.. No sublux ation. Severe bending of the coccyx. DISK SPACES: Narrowing of the disc L3-L4, L4-L5 and L5-S1. SOFT TISSUES: Aortic atherosclerotic changes. IMPRESSION: Acute Compression fracture of L1 with about 30% loss of height. Multilevel degenerative disc disease. Reviewed, dictated and finalized at location A.
--- NOTE | ~2024-09-01 | XR_ITS ---
XR wrist LT 2V Ordering provider: Marjorie Nicolas PA-C History: . 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 PAIN . Comparison: July 09, 2021 FINDINGS: BONES: Possible fracture of the ulnar styloid. Possibility of interruption of the cortex in the dista l radius laterally cannot be excluded. Follow-up exam in 10 days is advised. Otherwise, No acute frac ture or dislocation. No definite scaphoid fracture. JOINT SPACES: Well maintained. SOFT TISSUES: Normal. IMPRESSION: Possible fracture of the ulnar styloid and interruption of the cortex in the lateral aspect of the di stal radius. Follow-up exam in 10 days is advised. Reviewed, dictated and finalized at location A. IMPRESSION: Possible fracture of the ulnar styloid and interruption of the cortex in the la teral aspect of the distal radius. Follow-up exam in 10 days is advised.
== END 2024-09-01 10:53 | disposition home or self-care (01) ==
PROVIDERS: PCP Family Medicine; Visit Provider Physician Assistant
DX: M25.532 Pain in left wrist (principal); M51.369 Other intervertebral disc degeneration, lumbar region without mention of lumbar back pain or lower extremity pain
CPT/HCPCS: 72100; 73100

== ENCOUNTER 2024-10-20 09:40 | Outpatient (CLI) | payer MEDICARE, OTHER, SELFPAY ==
--- NOTE | ~2024-10-20 | XR_ITS ---
3 VIEWS LUMBAR SPINE Ordering provider: Delores Fields MD History: . 1 MONTH FOLLOW UP TO LUMBAR FRACTURE . Comparison: September 01, 2024 FINDINGS: VERTEBRAL BODIES:Compression fracture of L1 most likely acute with increased compression compared to previous study. No subluxation. DISK SPACES: Narrowing of the disc L3-L4, L4-L5 and L5-S1. Multilevel facet joint disease. SOFT TISSUES: Atherosclerotic changes of the aorta. IMPRESSION: Compression fracture of L1 with increased loss of volume compared to previous study. Multilevel degenerative disc disease. Reviewed, dictated and finalized at location A. 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 Multilevel degenerative disc disease.
== END 2024-10-20 09:41 | disposition home or self-care (01) ==
PROVIDERS: PCP Family Medicine; Visit Provider Pain Medicine Pain Medicine
DX: M80.08XA Age-related osteoporosis with current pathological fracture, vertebra(e), initial encounter for fracture (principal)
CPT/HCPCS: 72100

== ENCOUNTER 2025-03-19 07:16 | Outpatient (CLI) | payer MEDICARE, OTHER, SELFPAY ==
[2025-03-19 08:10] LABS: Alanine Aminotransferase 16 U/L (6-50); Albumin Level 4.5 g/dL (3.5-5.1); Alkaline Phosphatase 74 U/L (38-126); Anion Gap 6 mmol/L (4-12); Aspartate Amino Transferase 26 U/L (17-59); Blood Urea Nitrogen 15 mg/dL (9-20); Calcium 9.6 mg/dL (8.4-10.2); Carbon Dioxide 29 mmol/L (22-30); Chloride 105 mmol/L (98-107); Cholesterol 221 mg/dL (0-200); Estimated Glomerular Filt Rate > 60; Glucose 100 mg/dL (65-110); HDL Direct 62 mg/dL; Potassium 4.8 mmol/L (3.4-5.0); Sodium 140 mmol/L (137-145); Triglycerides 163 mg/dL (<150); Uric Acid 4.2 mg/dL (3.5-8.5)
[2025-03-19 08:11] LABS: Basophils Percent Auto 0.7 % (0.2-1.2); Eosinophils Absolute Auto 0.3 K/mm3 (0-0.3); Hemoglobin 14.7 g/dL (14.0-18.0); Immature Granulocyte Absolute 0.02 K/mm3 (0.00-0.031); Immature Granulocyte Percent A 0.4 % (0-0.5); Lymphocytes Absolute Auto 2.26 K/mm3 (0.9-3.2); Lymphocytes Percent Auto 40.4 % (18.3-44.2); Mean Corpuscular HGB Conc 33.4 g/dl (32-36); Mean Corpuscular Hemoglobin 33.6 pg (26-34); Mean Corpuscular Volume 100.5 fl (80-100); Monocytes Absolute Auto 0.5 K/mm3 (0.1-0.6); Monocytes Percent Auto 8.8 % (2.6-8.5); Neutrophils Absolute Auto 2.5 K/mm3 (1.3-6.7); Neutrophils Percent Auto 44.7 % (45.5-73.1); Platelet Count Result 259 k/mm3 (150-375); Red Blood Count 4.38 M/mm3 (4.6-6.20); Red Cell Distribution Width 13.4 % (11.5-14.5); White Blood Count 5.6 K/mm3 (4.5-10.0)
[2025-03-19 08:21] LABS: LDL Cholesterol Direct 109 mg/dL
[2025-03-19 08:43] LABS: Prostate Specific Antigen 0.5 ng/mL (< OR = 4.0)
== END 2025-03-19 07:17 | disposition home or self-care (01) ==
PROVIDERS: PCP Family Medicine; Visit Provider Physician Assistant
DX: E78.2 Mixed hyperlipidemia (principal); I10 Essential (primary) hypertension; R97.20 Elevated prostate specific antigen [PSA]; M1A.0621 Idiopathic chronic gout, left knee, with tophus (tophi); Z12.5 Encounter for screening for malignant neoplasm of prostate
CPT/HCPCS: 36415; 80053; 80061; 84153; 84550; 85025; G0103

== ENCOUNTER 2025-05-21 07:28 | Outpatient (CLI) | payer MEDICARE, OTHER, SELFPAY ==
[2025-05-21 08:13] LABS: Alanine Aminotransferase 23 U/L (6-50); Albumin Level 4.5 g/dL (3.5-5.1); Alkaline Phosphatase 71 U/L (38-126); Anion Gap 9 mmol/L (4-12); Aspartate Amino Transferase 45 U/L (17-59); Bilirubin,Total 2.9 mg/dL (0.2-1.3); Blood Urea Nitrogen 12 mg/dL (9-20); Calcium 9.9 mg/dL (8.4-10.2); Carbon Dioxide 26 mmol/L (22-30); Chloride 104 mmol/L (98-107); Estimated Glomerular Filt Rate > 60; Glucose 115 mg/dL (65-110); Potassium 4.2 mmol/L (3.4-5.0); Sodium 139 mmol/L (137-145); Total Protein 7.9 g/dL (6.3-8.2)
[2025-05-21 08:22] LABS: Iron 276 ug/dL (49-181)
[2025-05-21 08:34] LABS: Percent Iron Saturation 116 % (20-50)
[2025-05-21 09:01] LABS: Vitamin B12 516.0 pg/mL (239-931)
== END 2025-05-21 07:29 | disposition home or self-care (01) ==
PROVIDERS: PCP Family Medicine; Visit Provider Physician Assistant
DX: D64.9 Anemia, unspecified (principal); R17 Unspecified jaundice
CPT/HCPCS: 36415; 80053; 82607; 83540; 83550

== ENCOUNTER 2025-05-28 13:12 | Outpatient (CLI) | payer MEDICARE, OTHER, SELFPAY ==
--- NOTE | ~2025-05-28 | DEXA_ITS ---
Bone Density Report Name: ABBEY BIRD Age: 69 Sex: Male Ethnicity: White Date of : 1955 Indication: height loss; Referring Provider: JOSE MARTINEZ Study: Bone densitometry was performed. Exam Date: May 28, 2025 Accession number: [id number] Bone Density: Region BMD T-score Z-score Classification AP Spine(L1, L2, L3) 1.012 -0.5 0.3 Normal Femoral Neck (Left) 0.681 -1.8 -0.7 Osteopenia Total Hip (Left) 0.881 -1.0 -0.4 Normal Femoral Neck (Right) 0.830 -0.7 0.4 Normal Total Hip (Right) 0.859 -1.1 -0.5 Osteopenia Total Hip Mean 0.870 -1.1 -0.5 Osteopenia World Health Organization criteria for BMD impression classify patients as: Normal (T-score at or above -1.0), Osteopenia (T-score between -1.0 and -2.5), or Osteoporosis (T-score at or below -2.5). 10-year Fracture Risk(1): Major Osteoporotic Fracture 7.4% Hip Fracture 1.8% Reported Risk Factors: [place] (), Neck BMD=0.681, BMI=24.5 (1) FRAX(R) Version 3.08. Fracture probability calculated for an untreated patient. Fracture probability may be lower if the patient has received treatment. Clinical Information Provided by Patient: Has used the following medications: Calcium Patient maximum height was 72 No regular weight bearing exercise Drinks caffeinated beverages Impression: The patient has low bone mass, based on the Left Femoral Neck T-score. The patient has an estimated ten-year risk of hip fracture of 1.8% and an estimated ten-year risk of major fracture of 7.4%, based on the WHO FRAX algorithm. Discussion: BONE DENSITY IS LOW AT ONE OR MORE SKELETAL SITES. This patient's lowest T-score is low at one or more skeletal sites. It meets the World Health Organization's (WHO) criteria for ?low bone mass? (T-score between -1.0 and -2.5). The patient's 10-year risk of fracture as calculated by FRAX is less than the threshold where pharmacological therapy is recommended by the National Osteoporosis Foundation (NOF). However, all treatment decisions require clinical judgment and consideration of individual patient factors, including patient preferences, comorbidities, previous drug use, risk factors not captured in the FRAX model (e.g., frailty, falls, vitamin D deficiency, increased bone turnover, interval significant decline in bone density) and possible under or overestimation of fracture risk by FRAX. The patient should follow a healthful lifestyle (good nutrition with adequate calcium and vitamin D, and appropriate weight-bearing exercise). Follow-Up: Consider repeating this study in 2 to 3 years to reassess this patient's status, or sooner if there is some new clinical indication. Reported by: HUEY on 05/28/2025 1:46:00 PM. Reviewed, dictated and finalized at location A.
== END 2025-05-28 13:13 | disposition home or self-care (01) ==
LOC: ANHIMG 13:13
PROVIDERS: PCP Family Medicine; Visit Provider Physician Assistant
DX: M85.89 Other specified disorders of bone density and structure, multiple sites (principal); M48.50XA Collapsed vertebra, not elsewhere classified, site unspecified, initial encounter for fracture
CPT/HCPCS: 77080

== ENCOUNTER 2025-06-29 07:43 | Outpatient (CLI) | payer MEDICARE, OTHER, SELFPAY ==
[2025-06-29 08:04] LABS: Hematocrit 42.4 % (42.0-52.0); Hemoglobin 14.5 g/dL (14.0-18.0); Mean Corpuscular HGB Conc 34.2 g/dl (32-36); Mean Corpuscular Hemoglobin 34.2 pg (26-34); Mean Corpuscular Volume 100.0 fl (80-100); Platelet Count Result 219 k/mm3 (150-375); Red Blood Count 4.24 M/mm3 (4.6-6.20); White Blood Count 5.5 K/mm3 (4.5-10.0)
[2025-06-29 08:21] LABS: Alanine Aminotransferase 18 U/L (6-50); Albumin Level 4.4 g/dL (3.5-5.1); Alkaline Phosphatase 67 U/L (38-126); Aspartate Amino Transferase 35 U/L (17-59); Bilirubin,Total 1.5 mg/dL (0.2-1.3); Total Protein 7.7 g/dL (6.3-8.2)
== END 2025-06-29 07:44 | disposition home or self-care (01) ==
LOC: ANHLAB 07:46
PROVIDERS: PCP Family Medicine
DX: K70.0 Alcoholic fatty liver (principal); Z72.89 Other problems related to lifestyle
CPT/HCPCS: 36415; 80076; 85027